=== PATIENT | female | born 1960 | race Caucasian/White ===

== ENCOUNTER 2018-10-13 08:39 | Day surgery (SDC) | payer OTHER, SELFPAY ==
[2018-10-13 09:44] VITALS: BP 126/65; PULSE 55; RESP 16; TEMP 36.6; O2SAT 97; BMI 24.5
[2018-10-13] MEDS: SODIUM CHLORIDE 0.9% 1,000 ML 200 ML IV (10:00)
--- NOTE | 2018-10-13 11:05 | PM.HP.1 ---
History of Present Illness Date Patient Seen: 10/13/18 Time Patient Seen: 11:05 Chief complaint: colonoscopy [id number] Narrative: Patient is a woman here for screening colonoscopy. Her last exam was 10 years ago. She has no history of polyps and no family history colon cancer. Patient History Medical History Arthritis (Chronic) Surgical History History of tubal ligation (Resolved) Family & Social History Social History: household members none Meds Home Medications Medication Instructions Recorded Confirmed Type acyclovir 200 mg PRN 10/13/18 History Allergies Allergy/AdvReac Type Severity Reaction Status Date / Time No Known Drug Allergies Allergy Verified 10/13/18 09:41 Review of Systems Review of Systems All systems reviewed & are unremarkable except as noted in HPI and below Exam Vital Signs (past 8 hours): - 10/13/18 09:44 Temperature 97.8 F Pulse Rate 55 L Respiratory Rate 16 Blood Pressure 126/65 Pulse Oximetry 97 Oxygen Delivery Method Room Air Narrative Exam Narrative: Thin cooperative woman in no apparent distress. Lungs are clear to auscultation no rales rhonchi. Heart regular rate and rhythm without murmur gallop. Abdomen is scaphoid soft nontender without mass. Alert and oriented x3. Assessment & Plan Plan: Assessment/Plan Narrative: For screening colonoscopy. I have discussed the procedure and the rationale with the patient including risks of bleeding, perforation which would necessitate a major operation, failure to find remove all lesions and the potential to tattoo. They appeared to understand and wished to proceed.
--- NOTE | 2018-10-13 11:07 | PM.PREOP ---
Pre-operative Note Interval Note Pre-op Check: Yes History & Physical exam performed today by Physician Changes: No ASA Class (for procedural sedation): I
--- NOTE | 2018-10-13 11:38 | PM.OP.ENDO ---
Operative Date/Time/Diagnoses Date of procedure: 10/13/18 Time of procedure: 11:38 Pre-op diagnosis: Screening examination Post-op diagnosis: same (Ruiz diverticulosis. Internal hemorrhoid this.) Procedure & Clinicians Study performed: Colonoscopy Same procedure as scheduled: Yes Indications: Screening Surgeon: Pablo Starks Procedure Notes SCOAP/Timeout: Performed Procedure in detail: The patient was placed in the left lateral decubitus position and underwent IV sedation directed by the surgeon consisting of fentanyl and Versed. Digital exam was unremarkable. The scope was inserted and advanced through the rectum into the sigmoid, descending, transverse, and ascending colon. Pressure was applied we made our way into the cecum. Diverticulosis was noted throughout the colon. The heavy is concentrations were in the sigmoid and ascending colon.. The cecum was reached identified by the ileocecal valve and the appendiceal opening. The ileocecal valve was successfully cannulated. The terminal ileum was normal in appearance. The scope was gradually brought out. No Polyps were found. The scope ultimately was retroflexed in the rectum. The appearance was remarkable for internal hemorrhoids without ulceration. There was some scarring noted. The scope was removed and the patient tolerated the procedure well. Prep was very good Scope withdrawal time: 8 min Sedation minutes: 24 Findings: diverticulosis (Ruiz colonic) and internal hemorrhoids Specimen(s): none sent Complications: none Recommendations: Colonscopy in 10 years Follow up: as needed Disposition: PACU
[2018-10-13] MEDS: fentaNYL 250 MCG/5 ML INJ IV (11:40)
[2018-10-13] MEDS: MIDAZOLAM 5 MG/5 ML VIAL IV (11:40)
[2018-10-13 11:46] VITALS: BP 87/56; PULSE 56; RESP 12; TEMP 36.6; O2SAT 97
[2018-10-13 11:56] VITALS: BP 102/64; PULSE 53; RESP 12; O2SAT 97
== END 2018-10-13 12:45 | disposition home or self-care (01) ==
PROVIDERS: PCP Family Medicine; Visit Provider Specialist
PROC: 0DJD8ZZ Inspection of Lower Intestinal Tract, Via Natural or Artificial Opening Endoscopic (ICD-10-PCS; CPT 45378; principal; 2018-10-13 10:45)
DX: Z12.11 Encounter for screening for malignant neoplasm of colon (principal); K57.30 Diverticulosis of large intestine without perforation or abscess without bleeding; K64.8 Other hemorrhoids
CPT/HCPCS: 45378; 99152; 99153; J2250; J3010

== ENCOUNTER → 2021-01-23 10:38 | Outpatient (CLI) | payer BC, SELFPAY ==
--- NOTE | 2021-01-23 | DI.RAD.S_ITS ---
PROCEDURE: XR DEXA AXIAL SKELETON INDICATIONS: PAIN IN RIGHT HIP COMPARISON: None. FINDINGS: This blank DEXA report has been sent in error by the PACS system. The correct and complete report will be forthcoming in 1-2 days. Thank you for your patience and understanding. Dictated by: Cece Strong MD, PhD on 01/23/2021 at 12:44 Approved by: Cece Strong MD, PhD on 01/23/2021 at 12:44
== END ==
PROVIDERS: PCP Family Medicine; Referring Provider Physician Assistant Medical; Visit Provider Physician Assistant Medical
DX: M85.88 Other specified disorders of bone density and structure, other site (principal); M25.551 Pain in right hip; D48.9 Neoplasm of uncertain behavior, unspecified
CPT/HCPCS: 77080

== ENCOUNTER → 2021-04-16 08:37 | Outpatient (CLI) | payer BC, SELFPAY ==
[2021-04-16 20:07] LABS: Add Manual Diff / Slide Review NO; Basophils Absolute Auto 0 /uL (0-100); Basophils Percent Auto 0.7 % (0-2); Eosinophils Absolute Auto 200 /uL (0-450); Eosinophils Percent Auto 3.8 % (2-4); Hematocrit 40.5 % (36-46); Hemoglobin 13.8 g/dL (12.0-16.0); Lymphocytes Absolute Auto 2000 /uL (1100-4500); Lymphocytes Percent Auto 32.5 % (25-40); Mean Corpuscular HGB Conc 34.1 % (30-36); Mean Corpuscular Hemoglobin 32.1 PG (26-34); Mean Corpuscular Volume 93.9 fL (80-100); Monocytes Absolute Auto 500 /uL (0-900); Monocytes Percent Auto 8.7 % (3-14); Neutrophils Absolute Auto 3300 /uL (1500-7000); Neutrophils Percent Auto 54.3 % (50-75); Platelet Count 283 X10^3/uL (150-400); Red Blood Cell Count 4.31 X10^6/uL (4.0-5.2); Red Cell Distribution Width 12.7 % (11.6-14.8)
[2021-04-16 20:17] LABS: Alanine Aminotransferase 14 IU/L (<35); Albumin Globulin Ratio 1.5 (1.0-2.8); Alkaline Phosphatase 95 U/L (38-126); Aspartate Aminotransferase 27 IU/L (14-36); BUN Creatinine Ratio 17.1 (6-22); Bilirubin Total 0.5 mg/dL (0.2-1.3); Blood Urea Nitrogen 13 mg/dL (7-17); Calcium 9.6 mg/dL (8.4-10.2); Carbon Dioxide 29 mmol/L (22-32); Chloride 100 mmol/L (98-107); Estimated Glomerular Filt Rate > 60.0 mL/min (>60); Globulin 2.6 g/dL (1.7-4.1); Glucose 84 mg/dL (80-110); HEMOLYSIS < 15 (0-50); Potassium 4.4 mmol/L (3.4-5.1); Sodium 136 mmol/L (137-145); Total Protein 6.6 g/dL (6.3-8.2)
[2021-04-16 21:10] LABS: Hep C Virus Ab w/Reflex Quant REACTIVE s/c (NEGATIVE)
== END ==
PROVIDERS: PCP Family Medicine; Visit Provider Physician Assistant
DX: B18.2 Chronic viral hepatitis C (principal)
CPT/HCPCS: 80053; 85025; 86803; 87522

== ENCOUNTER → 2021-07-01 09:03 | Outpatient (CLI) | payer BC, SELFPAY ==
[2021-07-01 19:59] LABS: Hematocrit 43.1 % (36-46); Hemoglobin 14.1 g/dL (12.0-16.0); Mean Corpuscular HGB Conc 32.8 % (30-36); Mean Corpuscular Hemoglobin 31.2 PG (26-34); Mean Corpuscular Volume 95.3 fL (80-100); Platelet Count 272 X10^3/uL (150-400); Red Blood Cell Count 4.52 X10^6/uL (4.0-5.2); Red Cell Distribution Width 12.5 % (11.6-14.8); White Blood Cell Count 5.6 X10^3/uL (4.5-11.0)
[2021-07-01 20:12] LABS: Alanine Aminotransferase 15 IU/L (<35); Albumin 4.1 g/dL (3.5-5.0); Albumin Globulin Ratio 1.7 (1.0-2.8); Alkaline Phosphatase 88 U/L (38-126); Aspartate Aminotransferase 28 IU/L (14-36); BUN Creatinine Ratio 15.4 (6-22); Bilirubin Total 0.6 mg/dL (0.2-1.3); Blood Urea Nitrogen 12 mg/dL (7-17); Calcium 9.5 mg/dL (8.4-10.2); Carbon Dioxide 31 mmol/L (22-32); Chloride 101 mmol/L (98-107); Estimated Glomerular Filt Rate > 60.0 mL/min (>60); Globulin 2.4 g/dL (1.7-4.1); Glucose 80 mg/dL (80-110); HEMOLYSIS < 15 (0-50); Potassium 4.3 mmol/L (3.4-5.1); Sodium 137 mmol/L (137-145); Total Protein 6.5 g/dL (6.3-8.2)
== END ==
PROVIDERS: PCP Physician Assistant Medical; Visit Provider Physician Assistant
DX: B18.2 Chronic viral hepatitis C (principal)
CPT/HCPCS: 80053; 85027; 87522

== ENCOUNTER → 2021-08-28 13:36 | Outpatient (CLI) | payer BC, SELFPAY | PROVIDERS: PCP Physician Assistant Medical; Visit Provider Physician Assistant Medical | DX: N32.81 Overactive bladder (principal) | CPT/HCPCS: 87086 ==

== ENCOUNTER → 2021-09-02 11:12 | Outpatient (CLI) | payer BC, SELFPAY | PROVIDERS: PCP Physician Assistant Medical; Visit Provider Physician Assistant Medical | DX: Z91.89 Other specified personal risk factors, not elsewhere classified (principal) | CPT/HCPCS: 87086 ==

== ENCOUNTER 2022-02-08 14:34 | Emergency (ER) | payer BC, SELFPAY ==
[2022-02-08] VITALS (14 sets, daily range): BP systolic 101–162; BP diastolic 57–67; PULSE 56–66; RESP 15–37; TEMP 37; O2SAT 97–99; BMI 26.5
--- NOTE | 2022-02-08 14:48 | DI.RAD.S_ITS ---
PROCEDURE: XR CHEST 1V INDICATIONS: chest pain TECHNIQUE: One view of the chest was acquired. COMPARISON: [facility] ([facility]), CR, XR CHEST 2V, 08/28/2021, 12:35. FINDINGS: Surgical changes and devices: None. Lungs and pleura: Lungs are clear. No pleural effusions or pneumothorax. Mediastinum: Mediastinal contours appear normal. Heart size is normal. Bones and chest wall: No suspicious bony lesions. Overlying soft tissues appear unremarkable. IMPRESSION: No acute cardiopulmonary pathology. Dictated by: Atif Guido M.D. on 02/08/2022 at 15:18 Approved by: Atif Guido M.D. on 02/08/2022 at 15:18
[2022-02-08] MEDS: ASPIRIN 81 MG CHEW TAB 324 MG PO (14:55)
[2022-02-08 15:10] LABS: Add Manual Diff / Slide Review NO; Basophils Absolute Auto 0 /uL (0-100); Basophils Percent Auto 0.7 % (0-2); Eosinophils Absolute Auto 0 /uL (0-450); Eosinophils Percent Auto 0.3 % (2-4); Hematocrit 41.4 % (36-46); Hemoglobin 14.4 g/dL (12.0-16.0); Lymphocytes Absolute Auto 1100 /uL (1100-4500); Lymphocytes Percent Auto 19.9 % (25-40); Mean Corpuscular HGB Conc 34.8 % (30-36); Mean Corpuscular Hemoglobin 32.8 PG (26-34); Mean Corpuscular Volume 94.4 fL (80-100); Monocytes Absolute Auto 400 /uL (0-900); Monocytes Percent Auto 6.9 % (3-14); Neutrophils Absolute Auto 4100 /uL (1500-7000); Neutrophils Percent Auto 72.2 % (50-75); Platelet Count 216 X10^3/uL (150-400); Red Blood Cell Count 4.39 X10^6/uL (4.0-5.2); Red Cell Distribution Width 12.8 % (11.6-14.8); White Blood Cell Count 5.7 X10^3/uL (4.5-11.0)
[2022-02-08 15:11] LABS: Alanine Aminotransferase 15 IU/L (<35); Albumin 4.4 g/dL (3.5-5.0); Albumin Globulin Ratio 1.6 (1.0-2.8); Alkaline Phosphatase 50 U/L (38-126); Aspartate Aminotransferase 27 IU/L (14-36); BUN Creatinine Ratio 24.3 (6-22); Bilirubin Total 0.7 mg/dL (0.2-1.3); Blood Urea Nitrogen 17 mg/dL (7-17); Calcium 8.7 mg/dL (8.4-10.2); Carbon Dioxide 30 mmol/L (22-32); Chloride 100 mmol/L (98-107); Creatine Kinase 53 U/L (30-135); Estimated Glomerular Filt Rate > 60.0 mL/min (>60); Globulin 2.7 g/dL (1.7-4.1); Glucose 111 mg/dL (80-110); HEMOLYSIS < 15 (0-50); Lipase 39 U/L (23-300); Magnesium 2.3 mg/dL (1.6-2.3); Potassium 3.6 mmol/L (3.4-5.1); Sodium 136 mmol/L (137-145); Total Protein 7.1 g/dL (6.3-8.2)
[2022-02-08 15:21] LABS: Troponin I < 0.012 ng/mL (0.01-0.034)
--- NOTE | 2022-02-08 15:49 | ED.CHESTPAIN ---
HPI - Chest Pain General Chief Complaint: Chest Pain Stated Complaint: Chest pain- sent by [email or web address] Time Seen by Provider: 02/08/22 15:45 Source: patient Mode of arrival: Ambulatory Limitations: no limitations Limitations: no limitations History of Present Illness HPI narrative: This is a 61-year-old female comes emergency department with complaint of chest pain sent from [facility]. Patient states last night she had vomiting for about 4:00 p.m. to 8:00 p.m. yesterday that was persistent as well as diarrhea. This had since resolved. She went to sleep but when she woke up this morning she felt like she pulled a muscle in her chest and shoulder and back. She states pain was quite intense but was also sort of localized to the left side of her chest but she had some centrally as well. She took an Advil which seemed to almost completely resolve her symptoms but not totally. She has continued to have some symptoms movement and walking seem to make it better. She did have a temperature of a 100? F at home this morning. She denies any shortness of breath. She denies any diaphoresis. She has not had any additional nausea vomiting since last night. She has not had any additional diarrhea. She never had any bright red blood or melanotic stools. She denies any dysuria urgency or frequency. Patient does have a history of bicuspid aortic valve, she is murmur and follows with Cardiology but has not required any intervention she takes acyclovir, vitamin-D and Ambien as needed her only surgeries are tubal ligation and tonsillectomy. No tobacco, alcohol or illicit. Family history no pulmonary emboli or pulmonary issues but she has a brother who had cardiac stents placed in his mid 40s to early 50s and started on blood pressure medications in his 20s to 30s and 3 of her 4 brothers are on antihypertensives. Patient herself does not take any hypertensive medication. Related Data Home Medications Medication Instructions Recorded Confirmed acyclovir 200 mg PRN 10/13/18 Previous Rx's Medication Instructions Recorded acyclovir 400 mg tablet 400 mg PO BID #180 tab 08/28/21 acyclovir 5 % topical cream 1 applic TOPICAL 5XD 4 Days #5 g 08/28/21 hyoscyamine sulfate 0.125 mg 0.125 mg PO Q4H PRN #20 tab 08/28/21 disintegrating tablet trazodone 50 mg tablet 50 mg PO BEDTIME PRN #60 tab 08/28/21 tolterodine 2 mg capsule,extended See Rx Instructions .ROUTE 11/24/21 release 24 hr .COMPLEX #90 cap oxybutynin chloride 5 mg tablet See Rx Instructions .ROUTE 01/13/22 .COMPLEX #30 tab zolpidem 5 mg tablet 5 mg PO BEDTIME PRN #30 tab MDD 5 01/26/22 mg Allergies Allergy/AdvReac Type Severity Reaction Status Date / Time No Known Drug Allergies Allergy Verified 02/08/22 14:40 Review of Systems Review of Systems ROS Unobtainable: All systems reviewed & are unremarkable except as noted in HPI and below Patient History Medical History Arthritis Encounter for screening for depression Other specified acute skin changes due to ultraviolet radiation Other symptoms and signs involving cognitive functions and awareness Surgical History History of tubal ligation Social History household members: none Smoking Status: Never smoker Smoking Status: Never smoker alcohol intake frequency: 0-2 drinks per day Substance Use Type: does not use Exam Narrative Exam Narrative: GENERAL: Alert and oriented x three, female in mild distress. HEENT: Head normocephalic, atraumatic, EOMI, pupils reactive, face symmetric, moist mucous membranes NECK: Supple, full range of motion CARDIOVASCULAR: Regular rate and rhythm without murmurs, rubs or gallops. No JVD. No swelling bilateral lower extremities. RESPIRATORY: Breath sounds equal bilaterally, no wheezes rales or rhonchi. ABDOMEN: Soft, nontender. Normoactive bowel sounds all 4 quadrants. No guarding or rebound, rigidity, no mass : No CVA tenderness EXTREMITIES: Normal range of motion, no clubbing or edema. Neurovascularly intact NEUROLOGICAL: Cranial nerves II through XII grossly intact. Moving all extremities SKIN: Warm, dry, no petechiae, no rashes or lesions. Initial Vital Signs Initial Vital Signs: Vital Signs Temperature 98.6 F 02/08/22 14:36 Pulse Rate 66 02/08/22 14:36 Respiratory Rate 16 02/08/22 14:36 Blood Pressure 162/66 H 02/08/22 14:36 Pulse Oximetry 97 02/08/22 14:36 Scores HEART Score Heart Score history: Slightly Suspicious Heart Score EKG: Non-Specific repolarization disturbance Heart Score Age: 45-64 years old Heart Score risk factors: 1-2 risk factors Heart Score troponin: < or = to normal limit Heart Score Total: 3 Course Orders Ordered: ED Orders 02/08/22 14:48 XR chest 1V Stat EKG-12 Lead Stat 02/08/22 14:50 Complete Blood Count AUTO DIFF Stat Comprehensive Metabolic Panel Stat Lipase Stat Magnesium Stat Troponin & CK Cardiac Panel Stat 02/08/22 16:56 Troponin I Stat Discontinued Medications Aspirin (Aspirin 81 Mg Chew Tab) 324 mg PO NOW ONE Stop: 02/08/22 14:49 Last Admin: 02/08/22 14:55 Dose: 324 mg Documented by: JOSE A Vital Signs Vital signs: Vital Signs - 8 hr 02/08/22 14:36 02/08/22 15:08 02/08/22 15:12 Temperature 98.6 F Pulse Rate 66 59 L 60 Respiratory Rate 16 17 Blood Pressure 162/66 H 126/64 Pulse Oximetry 97 98 99 02/08/22 15:15 02/08/22 15:30 02/08/22 15:45 Temperature Pulse Rate 62 58 L 59 L Respiratory Rate 15 28 H 24 Blood Pressure 109/65 104/64 101/65 Pulse Oximetry 98 98 97 02/08/22 16:00 02/08/22 16:20 02/08/22 16:30 Temperature Pulse Rate 56 L 57 L 59 L Respiratory Rate 30 H 19 25 H Blood Pressure 104/67 107/57 L 113/64 Pulse Oximetry 98 98 98 02/08/22 16:45 02/08/22 17:00 02/08/22 17:15 Temperature Pulse Rate 60 63 57 L Respiratory Rate 28 H 37 H 20 Blood Pressure 114/64 113/65 117/65 Pulse Oximetry 97 97 98 02/08/22 17:30 02/08/22 17:41 Temperature Pulse Rate 60 59 L Respiratory Rate 30 H 33 H Blood Pressure 114/62 110/61 Pulse Oximetry 98 98 MDM - Chest Pain Lab Data Result diagrams: 02/08/22 14:50 02/08/22 14:50 Labs: Lab Results 04/04/22 04/04/22 04/04/22 Range/Units 14:50 14:50 16:56 WBC 5.7 (4.5-11.0) X10^3/uL RBC 4.39 (4.0-5.2) X10^6/uL Hgb 14.4 (12.0-16.0) g/dL Hct 41.4 (36-46) % MCV 94.4 (80-100) fL MCH 32.8 (26-34) PG MCHC 34.8 (30-36) % RDW 12.8 (11.6-14.8) % Plt Count 216 (150-400) X10^3/uL Neut % (Auto) 72.2 (50-75) % Lymph % (Auto) 19.9 L (25-40) % [place] % (Auto) 6.9 (3-14) % Eos % (Auto) 0.3 L (2-4) % Baso % (Auto) 0.7 (0-2) % Neut # (Auto) 4100 (1732-7255) /uL Lymph # (Auto) 1100 (4831-8918) /uL [place] # (Auto) 400 (0-900) /uL Eos # (Auto) 0 (0-450) /uL Baso # (Auto) 0 (0-100) /uL Sodium 136 L (137-145) mmol/L Potassium 3.6 (3.4-5.1) mmol/L Chloride 100 (98-107) mmol/L Carbon Dioxide 30 (22-32) mmol/L BUN 17 (7-17) mg/dL Creatinine 0.70 (0.52-1.04) mg/dL Estimated GFR > 60.0 (>60) mL/min BUN/Creatinine Ratio 24.3 H (6-22) Glucose 111 H (80-110) mg/dL Calcium 8.7 (8.4-10.2) mg/dL Magnesium 2.3 (1.6-2.3) mg/dL Total Bilirubin 0.7 (0.2-1.3) mg/dL AST 27 (14-36) IU/L ALT 15 (<35) IU/L Alkaline Phosphatase 50 (38-126) U/L Total Creatine Kinase 53 (30-135) U/L CK-MB (CK-2) TNP CK-MB (CK-2) Rel Index TNP Troponin I < 0.012 < 0.012 (0.01-0.034) ng/mL Total Protein 7.1 (6.3-8.2) g/dL Albumin 4.4 (3.5-5.0) g/dL Globulin 2.7 (1.7-4.1) g/dL Albumin/Globulin Ratio 1.6 (1.0-2.8) Lipase 39 (23-300) U/L Imaging Data Chest x-ray: Radiologist's Impression: [address] [address] XRay Report Signed Patient: Erin Sanchez MR#: [id number] : 1960 Acct:[id number] Age/Sex: 61 / F Date of Service: 02/08/22 Loc: ED Accession Number: [id number] ?? Procedure: XR chest 1V Ordering Provider: Jeniffer Kidd D.O. PROCEDURE:? XR CHEST 1V ? INDICATIONS:? chest pain ? TECHNIQUE:? One view of the chest was acquired.? ? COMPARISON:? [facility] [place], , [place]R CHEST 2V, 08/28/2021, 12:35. ? FINDINGS:? ? Surgical changes and devices:? None.? ? Lungs and pleura:? Lungs are clear.? No pleural effusions or pneumothorax.? ? Mediastinum:? Mediastinal contours appear normal.? Heart size is normal.? ? Bones and chest wall:? No suspicious bony lesions.? Overlying soft tissues appear unremarkable.? ? IMPRESSION:? No acute cardiopulmonary pathology. ? ? Dictated by: Atif Guido M.D. on 02/08/2022 at 15:18 ? ? Approved by: Atif Guido M.D. on 02/08/2022 at 15:18?? ECG Data Attestation: I personally reviewed and interpreted this ECG as follows: Prior ECG tracings: not available for review Interpretation: Sinus bradycardia, incomplete right bundle, nonspecific T-wave change. Rate of 59, NV 160 QRS of 92 QTC of 425. Patient does not have priors for comparison. EMS noted on their EKG to have inverted T-wave in lead 3 but did not send a copy of EKG. EKG 2. Shows sinus rhythm rate of 60 NV 154 QRS 88 QTC of 430. Patient continued to have T-wave inversion in lead 3. No other acute changes her appreciated appears similar to earlier EKG from today. MDM Narrative Medical decision making narrative: This is a 61-year-old female comes in with complaint of nausea and vomiting last night which has since resolved. Patient woke up this morning and felt discomfort in her chest and shoulders and back which had some improvement with Advil but not complete resolution. [place] and recommended to come for eval. She has high-risk family history but herself has bicuspid aortic valve but no other additional medical risk factors besides family history. EKG shows inverted T-wave in 3 but no continuous lead changes. Troponin is negative x2, chest x-ray and lab work do not show or illicit any other cause and I suspect some of this may be musculoskeletal from her frequent emesis yesterday. Patient and I did discuss her risk factors and if she has persistent or new symptoms should be re-evaluated. Discharge Plan Departure Patient Disposition: Home Clinical Impression: Atypical chest pain Instructions: DI for Atypical Chest Pain Activity Restrictions/Additional Instructions: I suspect your symptoms are related to recent episode of nausea and vomiting yesterday but if you have persistent symptoms please follow-up with your primary care physician for repeat evaluation and possible stress testing. You may take Tylenol or Advil for pain. Please return for new or worsening chest pain, shortness of breath, persistent vomiting, swelling in your extremities, passing out, black or bloody stools or other new or concerning symptoms. Prescriptions: No Action tolterodine 2 mg capsule,extended release 24hr See Rx Instructions .ROUTE .COMPLEX Qty: 90 3RF Dose Instruction: TAKE ONE CAPSULE BY MOUTH EVERY DAY Rx Instructions: TAKE ONE CAPSULE BY MOUTH EVERY DAY oxybutynin chloride 5 mg tablet See Rx Instructions .ROUTE .COMPLEX Qty: 30 0RF Dose Instruction: TAKE ONE TABLET BY MOUTH EVERY DAY AT BEDTIME Rx Instructions: TAKE ONE TABLET BY MOUTH EVERY DAY AT BEDTIME zolpidem 5 mg tablet 5 mg PO BEDTIME MDD 5 mg PRN (Reason: sleep) Qty: 30 0RF Hold Instructions: trial of trazadone acyclovir 200 mg 200 mg PRN (Reason: Herpes) 0RF acyclovir 400 mg tablet 400 mg PO BID Qty: 180 3RF acyclovir 5 % cream 1 applic topical 5XD 4 Days Qty: 5 3RF trazodone 50 mg tablet 50 mg PO BEDTIME PRN (Reason: insomnia) Qty: 60 2RF hyoscyamine sulfate 0.125 mg tablet,disintegrating 0.125 mg PO Q4H PRN (Reason: intestinal spasm) Qty: 20 1RF Referrals: Carla Rodriguez PA-C [Primary Care Provider] -
[2022-02-08 17:31] LABS: Troponin I < 0.012 ng/mL (0.01-0.034)
== END 2022-02-08 17:51 | disposition home or self-care (01) ==
PROVIDERS: Emergency Provider Emergency Medicine; PCP Physician Assistant Medical
DX: R07.9 Chest pain, unspecified (principal)
CPT/HCPCS: 36415; 71045; 80053; 82550; 83690; 83735; 84484; 85025; 93005; 93010; 99284

== ENCOUNTER → 2022-05-04 08:08 | Outpatient (CLI) | payer BC, SELFPAY ==
[2022-05-04 18:18] LABS: Add Manual Diff / Slide Review NO; Basophils Absolute Auto 100 /uL (0-100); Basophils Percent Auto 1.1 % (0-2); Eosinophils Absolute Auto 200 /uL (0-450); Eosinophils Percent Auto 3.5 % (2-4); Hematocrit 40.5 % (36-46); Lymphocytes Absolute Auto 1800 /uL (1100-4500); Lymphocytes Percent Auto 34.3 % (25-40); Mean Corpuscular HGB Conc 34.6 % (30-36); Mean Corpuscular Hemoglobin 32.7 PG (26-34); Mean Corpuscular Volume 94.6 fL (80-100); Monocytes Absolute Auto 500 /uL (0-900); Monocytes Percent Auto 8.7 % (3-14); Neutrophils Absolute Auto 2800 /uL (1500-7000); Neutrophils Percent Auto 52.4 % (50-75); Platelet Count 274 X10^3/uL (150-400); Red Blood Cell Count 4.28 X10^6/uL (4.0-5.2); Red Cell Distribution Width 12.1 % (11.6-14.8); White Blood Cell Count 5.4 X10^3/uL (4.5-11.0)
[2022-05-04 18:19] LABS: Alanine Aminotransferase 14 IU/L (<35); Albumin 4.2 g/dL (3.5-5.0); Albumin Globulin Ratio 1.5 (1.0-2.8); Alkaline Phosphatase 82 U/L (38-126); Aspartate Aminotransferase 57 IU/L (14-36); BUN Creatinine Ratio 16.7 (6-22); Bilirubin Total 0.6 mg/dL (0.2-1.3); Blood Urea Nitrogen 13 mg/dL (7-17); Calcium 9.1 mg/dL (8.4-10.2); Carbon Dioxide 31 mmol/L (22-32); Chloride 102 mmol/L (98-107); Estimated Glomerular Filt Rate > 60 mL/min (>60); Globulin 2.8 g/dL (1.7-4.1); Glucose 80 mg/dL (80-110); HEMOLYSIS 22 (0-50); Potassium 4.2 mmol/L (3.4-5.1); Sodium 139 mmol/L (137-145)
[2022-05-04 18:20] LABS: Appearance Urine UA CLEAR; Bilirubin Urine UA NEGATIVE (NEGATIVE); Color Urine UA YELLOW; Glucose Urine UA NEGATIVE (Negative); Ketones Urine UA NEGATIVE (NEGATIVE); Leukocyte Esterase Urine UA NEGATIVE (NEGATIVE); Nitrite Urine UA NEGATIVE (Negative); Occult Blood Urine UA NEGATIVE (Negative); Protein Urine UA NEGATIVE (Negative); Urobilinogen Urine UA 0.2 E.U./dL (0.2)
[2022-05-04 18:27] LABS: Bacteria Urine None Seen; Culture Indicated Urine Cult Not Indicated; RBC Urine None Seen (0-5/HPF); Urine Comments Microscopic Normal; WBC Urine None Seen (0-5/HPF)
[2022-05-04 18:51] LABS: TSH w/ Reflex to FT4 1.64 uIU/mL (0.47-4.68)
== END ==
PROVIDERS: PCP Physician Assistant Medical; Visit Provider Physician Assistant Medical
DX: Z01.818 Encounter for other preprocedural examination (principal); M16.11 Unilateral primary osteoarthritis, right hip; M25.551 Pain in right hip; R01.1 Cardiac murmur, unspecified
CPT/HCPCS: 80053; 81001; 84443; 85025

== ENCOUNTER → 2023-07-21 09:57 | Outpatient (CLI) | payer OTHER, SELFPAY ==
[2023-07-21 19:15] LABS: Add Manual Diff / Slide Review NO; Basophils Absolute Auto 100 /uL (0-100); Basophils Percent Auto 0.8 % (0-2); Eosinophils Absolute Auto 200 /uL (0-450); Eosinophils Percent Auto 2.7 % (2-4); Hematocrit 42.6 % (36-46); Hemoglobin 14.6 g/dL (12.0-16.0); Lymphocytes Absolute Auto 2300 /uL (1100-4500); Lymphocytes Percent Auto 35.1 % (25-40); Mean Corpuscular HGB Conc 34.2 % (30-36); Mean Corpuscular Hemoglobin 32.1 PG (26-34); Mean Corpuscular Volume 94.1 fL (80-100); Monocytes Absolute Auto 500 /uL (0-900); Monocytes Percent Auto 6.9 % (3-14); Neutrophils Absolute Auto 3600 /uL (1500-7000); Neutrophils Percent Auto 54.5 % (50-75); Platelet Count 303 X10^3/uL (150-400); Red Blood Cell Count 4.53 X10^6/uL (4.0-5.2); Red Cell Distribution Width 12.6 % (11.6-14.8); White Blood Cell Count 6.6 X10^3/uL (4.5-11.0)
[2023-07-21 19:44] LABS: Alanine Aminotransferase 20 IU/L (<35); Albumin 4.4 g/dL (3.5-5.0); Albumin Globulin Ratio 1.8 (1.0-2.8); Alkaline Phosphatase 98 U/L (38-126); Aspartate Aminotransferase 28 IU/L (14-36); BUN Creatinine Ratio 17.1 (6-22); Bilirubin Total 0.5 mg/dL (0.2-1.3); Blood Urea Nitrogen 13 mg/dL (7-17); Calcium 9.2 mg/dL (8.4-10.2); Carbon Dioxide 30 mmol/L (22-32); Chloride 99 mmol/L (98-107); Cholesterol 226 mg/dL (140-199); Estimated Glomerular Filt Rate > 60 mL/min (>60); Globulin 2.5 g/dL (1.7-4.1); Glucose 89 mg/dL (80-110); HDL Cholesterol 57 mg/dL (40-60); HEMOLYSIS < 15 (0-50); LDL Cholesterol Calculated 155 mg/dL (<100); Potassium 4.5 mmol/L (3.4-5.1); Sodium 136 mmol/L (137-145); Total Protein 6.9 g/dL (6.3-8.2); Triglycerides 69 mg/dL (35-150)
[2023-07-21 20:18] LABS: Hep C Virus Ab w/Reflex Quant REACTIVE s/c (NEGATIVE)
== END ==
PROVIDERS: PCP Physician Assistant Medical; Visit Provider Physician Assistant
DX: R79.89 Other specified abnormal findings of blood chemistry (principal); Z13.6 Encounter for screening for cardiovascular disorders; Z86.19 Personal history of other infectious and parasitic diseases
CPT/HCPCS: 80053; 80061; 85025; 86803; 87522

== ENCOUNTER → 2023-07-27 16:15 | Outpatient (CLI) | payer OTHER, SELFPAY ==
--- NOTE | 2023-07-27 16:16 | DI.US.S_ITS ---
PROCEDURE: US PELVIC COMPLETE INDICATIONS: ENLARGED UTERUS TECHNIQUE: Real-time scanning was performed of the pelvic organs, with image documentation. Additional endovaginal scanning was necessary due to incomplete visualization of the adnexal and endometrial structures by transabdominal scanning. COMPARISON: None. FINDINGS: Uterus: Uterus is anteverted and normal in size at 2.1 x 4.3 x 3.1 cm. The myometrium is homogeneous. The endometrium measures 3 mm combined thickness. Trace fluid is present within the endocervical canal. Ovaries: The right ovary measures 0.9 x 0.5 x 0.8 cm, with a calculated ovarian volume of 0.2 cc. The left ovary measures 1.7 x 0.9 x 1.3 cm, with a calculated ovarian volume of 1.1 cc. The ovaries have a normal sonographic appearance. Less than 12 follicles can be seen in each ovary. No adnexal masses are seen. There is a simple 5 mm right ovarian cyst. Other: No pathologic free abdominal or pelvic fluid. IMPRESSION: Unremarkable pelvic ultrasound. We strive to produce accurate, complete, and clear reports of imaging services. To assist us in improving patient care, this report was composed using standard report templates and voice recognition software. Therefore, it may contain abnormal punctuation, insertions and/or omissions. Occasional wrong-word or sound-alike substitutions may occur. Though we review the report and make efforts to correct it, we do recommend that the report be read carefully in proper context to recognize any text inaccuracies. Dictated by: Becki Rodriguez M.D. on 07/28/2023 at 11:40 Approved by: Becki Rodriguez M.D. on 07/28/2023 at 11:42
== END ==
PROVIDERS: PCP Physician Assistant Medical; Referring Provider Nurse Practitioner Adult Health; Visit Provider Nurse Practitioner Adult Health
DX: N32.81 Overactive bladder (principal); R10.2 Pelvic and perineal pain
CPT/HCPCS: 76830; 76856; 93975

== ENCOUNTER → 2024-03-29 12:14 | Outpatient (CLI) | payer OTHER, SELFPAY | PROVIDERS: PCP Physician Assistant Medical; Visit Provider Physician Assistant Medical | DX: R30.0 Dysuria (principal) | CPT/HCPCS: 87086 ==

== ENCOUNTER → 2024-04-06 10:41 | Outpatient (CLI) | payer OTHER, SELFPAY ==
--- NOTE | 2024-04-06 10:42 | DI.MRI.S_ITS ---
PROCEDURE: MR LUMBAR SPINE WO CON INDICATIONS: possible interventional injections TECHNIQUE: Noncontrast sagittal T1 spin echo and T2 fast echo, sagittal STIR, and T2 fast spin echo through the lumbar spine. In cases with scoliosis, additional coronal T2 fast spin echo may be performed. COMPARISON: None. FINDINGS: Image quality: Excellent. Alignment and Curvature: There is normal bony alignment. Bone Marrow: Degenerative edematous endplate changes Modic type 1 noted at T12-L1 Spinal Cord: Conus medullaris terminates at the L1 level. Visualized cord demonstrates normal signal and size. Paraspinous Soft Tissues: No paravertebral masses. T12-L1: Disc bulge. No central stenosis. Mild foraminal stenosis. L1-L2: Disc bulge. No central stenosis. Moderate bilateral foraminal stenosis L2-L3: Disc bulge and arthropathy. Mild central stenosis. Moderate left and mild right foraminal stenosis L3-L4: Disc bulge and arthropathy. Mild central stenosis. No foraminal stenosis L4-L5: Disc bulge and arthropathy. No central stenosis. Severe left and no right foraminal stenosis L5-S1: Disc bulge and arthropathy. Moderate bilateral foraminal stenosis. No central stenosis IMPRESSION: Degenerative disc disease and arthropathy results in varying degrees of predominantly foraminal stenosis including severe left foraminal stenosis at L4-5 and moderate bilateral foraminal stenosis L5-S1 Approved by: Yevgeniy Ruvalcaba M.D. on 04/06/2024 at 15:19
== END ==
PROVIDERS: PCP Physician Assistant Medical; Referring Provider Physician Assistant Medical; Visit Provider Physician Assistant Medical
DX: M47.26 Other spondylosis with radiculopathy, lumbar region; M51.16 Intervertebral disc disorders with radiculopathy, lumbar region; M47.27 Other spondylosis with radiculopathy, lumbosacral region; M51.17 Intervertebral disc disorders with radiculopathy, lumbosacral region; M48.061 Spinal stenosis, lumbar region without neurogenic claudication; M48.07 Spinal stenosis, lumbosacral region; M41.9 Scoliosis, unspecified; G89.29 Other chronic pain
CPT/HCPCS: 72148

== ENCOUNTER → 2024-05-29 09:17 | Outpatient (CLI) | payer OTHER, SELFPAY | PROVIDERS: PCP Physician Assistant Medical; Visit Provider Physician Assistant Medical | DX: R31.9 Hematuria, unspecified (principal) | CPT/HCPCS: 87086 ==

== ENCOUNTER → 2024-06-01 11:29 | Outpatient (CLI) | payer OTHER, SELFPAY | PROVIDERS: PCP Physician Assistant Medical; Referring Provider Family Medicine; Visit Provider Family Medicine | DX: R10.9 Unspecified abdominal pain (principal); R31.9 Hematuria, unspecified | CPT/HCPCS: 87086 ==

== ENCOUNTER → 2024-06-07 06:00 | Outpatient (CLI) | payer OTHER, SELFPAY ==
[2024-06-12 08:36] LABS: Fecal Immunochemical Test Positive (Negative)
== END ==
PROVIDERS: PCP Physician Assistant Medical; Visit Provider Family Medicine
DX: R10.9 Unspecified abdominal pain (principal); R31.9 Hematuria, unspecified
CPT/HCPCS: 82274

== ENCOUNTER 2024-07-05 15:38 | Emergency (ER) | payer OTHER, SELFPAY ==
[2024-07-05 15:45] VITALS: BP 174/87; PULSE 65; RESP 19; TEMP 36.6; O2SAT 96; BMI 26.0
--- NOTE | 2024-07-05 16:37 | EKG_ITS ---
[address] [address] Test Date: 2024-07-05 Pat Name: Erin Sanchez Department: [facility] Room: Gender: Female [employer] Supervisor: GILBERT : 1960 Requested By: Order Number: [id number] Reading MD: Rafi Shore Measurements Intervals [place] Rate: 53 P: 74 [place]: 158 QRS: 24 QRSD: 86 T: 20 QT: 430 QTc: 403 Interpretive Statements Sinus bradycardia Electronically Signed On 07-06-2024 20:14:08 PDT by Rafi Shore
[2024-07-05 16:40] LABS: Add Manual Diff / Slide Review NO; Basophils Absolute Auto 0 /uL (0-100); Basophils Percent Auto 0.4 % (0-2); Eosinophils Absolute Auto 100 /uL (0-450); Eosinophils Percent Auto 0.6 % (2-4); Hematocrit 40.4 % (36-46); Hemoglobin 13.8 g/dL (12.0-16.0); Lymphocytes Absolute Auto 2300 /uL (1100-4500); Lymphocytes Percent Auto 26.4 % (25-40); Mean Corpuscular HGB Conc 34.3 % (30-36); Mean Corpuscular Hemoglobin 32.7 PG (26-34); Mean Corpuscular Volume 95.4 fL (80-100); Monocytes Absolute Auto 800 /uL (0-900); Monocytes Percent Auto 9.3 % (3-14); Neutrophils Absolute Auto 5600 /uL (1500-7000); Neutrophils Percent Auto 63.3 % (50-75); Platelet Count 258 X10^3/uL (150-400); Red Blood Cell Count 4.23 X10^6/uL (4.0-5.2); Red Cell Distribution Width 12.7 % (11.6-14.8); White Blood Cell Count 8.8 X10^3/uL (4.5-11.0)
[2024-07-05 16:41] LABS: Alanine Aminotransferase 16 IU/L (<35); Albumin 4.3 g/dL (3.5-5.0); Albumin Globulin Ratio 1.5 (1.0-2.8); Alkaline Phosphatase 86 U/L (38-126); Aspartate Aminotransferase 22 IU/L (14-36); BUN Creatinine Ratio 21.4 (6-22); Bilirubin Total 0.5 mg/dL (0.2-1.3); Blood Urea Nitrogen 15 mg/dL (7-17); Calcium 9.2 mg/dL (8.4-10.2); Carbon Dioxide 28 mmol/L (22-32); Chloride 99 mmol/L (98-107); Estimated Glomerular Filt Rate > 60 mL/min (>60); Globulin 2.8 g/dL (1.7-4.1); Glucose 95 mg/dL (80-110); HEMOLYSIS < 15 (0-50); Lipase 99 U/L (23-300); Potassium 4.1 mmol/L (3.4-5.1); Sodium 133 mmol/L (137-145); Total Protein 7.1 g/dL (6.3-8.2)
[2024-07-05 17:19] VITALS: BP 106/65; PULSE 52; RESP 12; O2SAT 96
[2024-07-05 18:04] VITALS: PULSE 57; O2SAT 96
[2024-07-05 18:05] VITALS: BP 129/63; PULSE 55; RESP 16; O2SAT 97
--- NOTE | 2024-07-05 18:21 | ED_ITS ---
HPI - General Adult General Chief complaint: Abdominal Pain Stated complaint: rt kidney area pain Time Seen by Provider: 07/05/24 17:56 Source: patient Mode of arrival: Ambulatory Limitations: no limitations History of Present Illness HPI narrative: 64-year-old female. Approximately 1 month ago stated that she potentially had some blood in her urine. States that subsequent urinalysis did not show any blood. She then thought that maybe she was having blood in her stool. This was confirmed by testing by her primary doctor. She just recently did the Cologuard but does not have the results of this. Has had a colonoscopy approximately 6 years ago. She thought that maybe there were polyps that were removed but nothing that was cancerous. She comes in the emergency department today for discomfort in her right lower quadrant and on her right middle back. Symptoms have been present for the past several days and worsening over the past day or so. No fevers. No vomiting. No urinary symptoms. No change in bowel habits. Related Data Home Medications Medication Instructions Recorded Confirmed methocarbamol 750 mg tablet 750 mg PO BID 06/01/24 06/01/24 Previous Rx's Medication Instructions Recorded hyoscyamine sulfate 0.125 mg 0.125 mg PO QID PRN dyspepsia #20 05/09/23 disintegrating tablet tabs acyclovir 400 mg tablet See Rx Instructions .Route 08/22/23 .COMPLEX #180 tabs estradiol 0.01% (0.1 mg/gram) See Rx Instructions vaginal 3XW 09/13/23 vaginal cream (Estrace) #42.5 grams baclofen 10 mg tablet 10 mg PO QID #90 tabs 02/08/24 zolpidem 5 mg tablet See Rx Instructions PO BEDTIME PRN 02/08/24 insomnia #14 tabs mirabegron 25 mg tablet,extended 25 mg PO DAILY #30 tabs 04/25/24 release 24 hr Allergies Allergy/AdvReac Type Severity Reaction Status Date / Time No Known Drug Allergies Allergy Verified 02/22/24 08:28 Review of Systems Review of Systems Narrative: See HPI Patient History Medical History Atrophic vulvovaginitis Sleep disorder Cervical cancer screening Well woman exam with routine gynecological exam Pelvic pressure in female Other specified acute skin changes due to ultraviolet radiation Other symptoms and signs involving cognitive functions and awareness Encounter for screening for depression Arthritis Surgical History (Updated 08/20/22 @ 17:02 by Vaughn Dugan MD) History of tubal ligation Social History household members: none Smoking Status: Former smoker Smoking Status: Former smoker alcohol intake frequency: holidays/special occasions only Substance Use Type: does not use Exam Initial Vital Signs Initial Vital Signs: Vital Signs Temperature 98 F 07/05/24 15:45 Pulse Rate 65 07/05/24 15:45 Respiratory Rate 19 07/05/24 15:45 Blood Pressure 174/87 H 07/05/24 15:45 Pulse Oximetry 96 07/05/24 15:45 Oxygen Delivery Method Room Air 07/05/24 15:45 Const General: cooperative and comfortable HENMT Head: normal to inspection and normocephalic Resp Effort & Inspection: normal respiratory effort Auscultation: clear to auscultation bilaterally Cardio Rate: regular rate GI Inspection: normal to inspection and non-distended Palpation: soft, No firm, No guarding and tender Skin General: no rashes or lesions noted Neuro General: patient alert, patient awake and moves all extremities Extrem General: capillary refill normal Course Orders Ordered: ED Orders 07/05/24 18:22 CT abdomen pelvis w con Stat Discontinued Medications Ondansetron HCl (Ondansetron 4 Mg/2 Ml Inj) 4 mg IV NOW PRN PRN Reason: Nausea And Vomiting Ondansetron HCl (Ondansetron 4 Mg Odt) 4 mg SL NOW PRN PRN Reason: Nausea And Vomiting Vital Signs Vital signs: Vital Signs - 8 hr 07/05/24 18:04 07/05/24 18:05 07/05/24 18:05 Pulse Rate 57 L 55 L Respiratory Rate 16 Blood Pressure 129/63 Pulse Oximetry 96 97 Oxygen Delivery Method Room Air 07/05/24 20:35 Pulse Rate 59 L Respiratory Rate 17 Blood Pressure 166/67 H Pulse Oximetry 98 Oxygen Delivery Method Room Air Medical Decision Making Lab Data Lab results reviewed: Yes I reviewed the patient's lab results. 07/05/24 16:32 07/05/24 16:32 Labs: Lab Results 07/05/24 Range/Units 16:32 WBC 8.8 (4.5-11.0) X10^3/uL RBC 4.23 (4.0-5.2) X10^6/uL Hgb 13.8 (12.0-16.0) g/dL Hct 40.4 (36-46) % MCV 95.4 (80-100) fL MCH 32.7 (26-34) PG MCHC 34.3 (30-36) % RDW 12.7 (11.6-14.8) % Plt Count 258 (150-400) X10^3/uL Neut % (Auto) 63.3 (50-75) % Lymph % (Auto) 26.4 (25-40) % [place] % (Auto) 9.3 (3-14) % Eos % (Auto) 0.6 L (2-4) % Baso % (Auto) 0.4 (0-2) % Neut # (Auto) 5600 (4578-5689) /uL Lymph # (Auto) 2300 (6676-8661) /uL [place] # (Auto) 800 (0-900) /uL Eos # (Auto) 100 (0-450) /uL Baso # (Auto) 0 (0-100) /uL Sodium 133 L (137-145) mmol/L Potassium 4.1 (3.4-5.1) mmol/L Chloride 99 (98-107) mmol/L Carbon Dioxide 28 (22-32) mmol/L BUN 15 (7-17) mg/dL Creatinine 0.70 (0.52-1.04) mg/dL Estimated GFR > 60 (>60) mL/min BUN/Creatinine Ratio 21.4 (6-22) Glucose 95 (80-110) mg/dL Calcium 9.2 (8.4-10.2) mg/dL Total Bilirubin 0.5 (0.2-1.3) mg/dL AST 22 (14-36) IU/L ALT 16 (<35) IU/L Alkaline Phosphatase 86 (38-126) U/L Total Protein 7.1 (6.3-8.2) g/dL Albumin 4.3 (3.5-5.0) g/dL Globulin 2.8 (1.7-4.1) g/dL Albumin/Globulin Ratio 1.5 (1.0-2.8) Lipase 99 (23-300) U/L Urine Dip Bedside Urine Glucose Negative Bedside Urine Bilirubin - Negative Bedside Urine Ketone - Negative Urine Specific [place] 1.005 Bedside Urine Occult Blood - Negative Bedside Urine pH 7.0 Bedside Urine Protein - Negative Bedside Urine Urobilinogen - Negative Bedside Urine Nitrite - Negative Bedside Urine Leukocytes - Negative Esterase Point of care testing: Urine Dip Bedside Urine Glucose Negative Bedside Urine Bilirubin - Negative Bedside Urine Ketone - Negative Urine Specific [place] 1.005 Bedside Urine Occult Blood - Negative Bedside Urine pH 7.0 Bedside Urine Protein - Negative Bedside Urine Urobilinogen - Negative Bedside Urine Nitrite - Negative Bedside Urine Leukocytes - Negative Esterase Imaging Data CT scan - abdomen/pelvis: Radiologist's Impression: PROCEDURE: CT ABDOMEN PELVIS W CON INDICATIONS: R sided abd pain TECHNIQUE: After the administration of intravenous contrast, axial sections acquired from the lung bases to the pubic symphysis. Coronal and sagittal reformats were performed. For radiation dose reduction, the following was used: automated exposure control, adjustment of mA and/or kV according to patient size. COMPARISON: None. FINDINGS: Image quality: Diagnostic. Lower Chest: No significant findings. ABDOMEN: Liver: No solid mass. Gallbladder: No radiopaque gallstones or wall thickening. Biliary ducts: No biliary dilation. Pancreas: No ductal dilation. Spleen: Size is within normal limits. Adrenal Glands: No adrenal nodules. Kidneys and Ureters: No hydronephrosis. No solid mass. No complex renal cystic lesion which requires follow up. Stomach and Bowel: Normal colonic caliber, without significant wall thickening. Diverticulosis. No diverticulitis. Normal appendix. Peritoneum: No abnormal intraperitoneal fluid. No free air. Ventral Wall: No significant ventral hernia. Abdominal Nodes: No retroperitoneal or mesenteric adenopathy by size criteria. Vessels: Aorta and inferior vena cava are normal in size. PELVIS: Pelvic Organs: Anteverted uterus. Bladder: No stone seen. Pelvic Nodes: No enlarged lymph nodes. Miscellaneous: No inguinal hernias are seen. Bones: No aggressive osseous abnormality. Right hip arthroplasty. Beam hardening artifact. Multilevel DDD. IMPRESSION: No acute abnormality identified. No free fluid. Normal appendix. Diverticulosis. No diverticulitis ECG Data Attestation: I personally reviewed and interpreted this ECG as follows: Interpretation: Sinus bradycardia Ventricular rate of 53 Normal axis Normal QRS Normal QTC No ST T wave changes MDM Narrative Medical decision making narrative: No leukocytosis. LFTs unremarkable. CT scan unremarkable as well. No signs of kidney stones. No signs of pyelonephritis. No signs of diverticulitis. Recommended that the patient talk with her primary care doctor about a follow-up to discuss the indications for a colonoscopy. We will hold on admission to the hospital for now. No indication for emergent surgical consultation. She was given return precautions. She expressed understanding and agreement. Discharge Plan Departure Patient Disposition: Home Clinical Impression: Abdominal pain Instructions: DI for Abdominal Pain-Adult Activity Restrictions/Additional Instructions: Continue to take all of your medications as directed. Recommend that you contact your primary doctor for follow-up to discuss the indications for a colonoscopy. Return to the emergency department for new or worsening symptoms. Prescriptions: No Action acyclovir 400 mg tablet See Rx Instructions .ROUTE .COMPLEX Qty: 180 3RF Dose Instruction: TAKE ONE TABLET BY MOUTH TWICE A DAY Rx Instructions: TAKE ONE TABLET BY MOUTH TWICE A DAY zolpidem 5 mg tablet See Rx Instructions PO BEDTIME MDD 5mg PRN (Reason: insomnia) Qty: 14 0RF Rx Instructions: 1/2 tab at hs for insomnia orally bedtime PRN; baclofen 10 mg tablet 10 mg PO QID Qty: 90 0RF mirabegron 25 mg tablet extended release 24 hr 25 mg PO DAILY Qty: 30 3RF methocarbamol 750 mg tablet 750 mg PO BID hyoscyamine sulfate 0.125 mg tablet,disintegrating 0.125 mg PO QID PRN (Reason: dyspepsia) Qty: 20 0RF estradiol [Estrace] 0.01 % (0.1 mg/gram) cream See Rx Instructions vaginal 3XW Qty: 42.5 2RF Rx Instructions: 0.5mg to introitus vaginally 3 times a week; Referrals: Carla Rodriguez PA-C [Primary Care Provider] - Stand Alone Forms: Patient Portal/API
[2024-07-05 20:35] VITALS: BP 166/67; PULSE 59; RESP 17; O2SAT 98
== END 2024-07-05 20:40 | disposition home or self-care (01) ==
PROVIDERS: Emergency Medicine; Emergency Provider Emergency Medicine; PCP Physician Assistant Medical
DX: R10.31 Right lower quadrant pain (principal); R00.1 Bradycardia, unspecified
CPT/HCPCS: 36415; 74177; 80053; 81003; 83690; 85025; 93005; 99284; Q9967

== ENCOUNTER → 2025-03-14 13:04 | Outpatient (CLI) | payer MEDICARE, SELFPAY ==
[2025-03-14 19:43] LABS: Add Manual Diff / Slide Review NO; Alanine Aminotransferase 18 IU/L (<35); Albumin 4.3 g/dL (3.5-5.0); Alkaline Phosphatase 115 U/L (38-126); Aspartate Aminotransferase 31 IU/L (14-36); BUN Creatinine Ratio 22.2 (6-22); Basophils Absolute Auto 100 /uL (0-100); Bilirubin Total 0.4 mg/dL (0.2-1.3); Blood Urea Nitrogen 20 mg/dL (7-17); Calcium 9.2 mg/dL (8.4-10.2); Carbon Dioxide 32 mmol/L (22-32); Chloride 101 mmol/L (98-107); Eosinophils Absolute Auto 200 /uL (0-450); Estimated Glomerular Filt Rate > 60 mL/min (>60); Globulin 2.2 g/dL (1.7-4.1); Glucose 68 mg/dL (70-99); HEMOLYSIS < 15 (0-50); Hematocrit 41.1 % (36-46); Hemoglobin 14.2 g/dL (12.0-16.0); Lymphocytes Absolute Auto 2300 /uL (1100-4500); Lymphocytes Percent Auto 32.9 % (25-40); Mean Corpuscular HGB Conc 34.5 % (30-36); Mean Corpuscular Hemoglobin 32.9 PG (26-34); Mean Corpuscular Volume 95.5 fL (80-100); Monocytes Absolute Auto 500 /uL (0-900); Monocytes Percent Auto 7.6 % (3-14); Neutrophils Absolute Auto 3900 /uL (1500-7000); Neutrophils Percent Auto 55.5 % (50-75); Platelet Count 267 X10^3/uL (150-400); Potassium 3.9 mmol/L (3.4-5.1); Red Blood Cell Count 4.31 X10^6/uL (4.0-5.2); Red Cell Distribution Width 12.5 % (11.6-14.8); Sodium 138 mmol/L (137-145); Total Protein 6.5 g/dL (6.3-8.2)
== END ==
PROVIDERS: Internal Medicine; PCP Physician Assistant Medical
DX: I35.0 Nonrheumatic aortic (valve) stenosis (principal)
CPT/HCPCS: 80053; 85025

== ENCOUNTER → 2025-05-16 08:58 | Outpatient (CLI) | payer MEDICARE, OTHER, SELFPAY | PROVIDERS: PCP Physician Assistant Medical; Visit Provider Physician Assistant Medical | DX: R10.9 Unspecified abdominal pain (principal) | CPT/HCPCS: 81002; 87086 ==

== ENCOUNTER → 2025-09-25 10:36 | Outpatient (CLI) | payer MEDICARE, OTHER, SELFPAY ==
[2025-09-25 19:18] LABS: Add Manual Diff / Slide Review NO; Hematocrit 42.5 % (36-46); Hemoglobin 14.7 g/dL (12.0-16.0); Lymphocytes Absolute Auto 2500 /uL (1100-4500); Mean Corpuscular HGB Conc 34.6 % (30-36); Mean Corpuscular Hemoglobin 32.4 PG (26-34); Mean Corpuscular Volume 93.8 fL (80-100); Platelet Count 327 X10^3/uL (150-400)
[2025-09-25 19:21] LABS: Alanine Aminotransferase 16 IU/L (<35); Albumin 4.6 g/dL (3.5-5.0); Albumin Globulin Ratio 1.8 (1.0-2.8); Alkaline Phosphatase 82 U/L (38-126); Blood Urea Nitrogen 14 mg/dL (7-17); Calcium 9.6 mg/dL (8.4-10.2); Carbon Dioxide 29 mmol/L (22-32); Chloride 99 mmol/L (98-107); Cholesterol 221 mg/dL (140-199); Estimated Glomerular Filt Rate > 60 mL/min (>60); Globulin 2.5 g/dL (1.7-4.1); Glucose 94 mg/dL (70-99); HDL Cholesterol 55 mg/dL (40-60); HEMOLYSIS < 15 (0-50); Hemoglobin A1C% w Est Avg Glu 5.2 % (4.0-6.0); Potassium 4.4 mmol/L (3.4-5.1); Sodium 135 mmol/L (137-145); Total Protein 7.1 g/dL (6.3-8.2); Triglycerides 87 mg/dL (35-150)
[2025-09-25 19:55] LABS: TSH w/ Reflex to FT4 1.28 uIU/mL (0.47-4.68)
== END ==
PROVIDERS: PCP Physician Assistant Medical; Visit Provider Physician Assistant Medical
DX: E78.00 Pure hypercholesterolemia, unspecified (principal); G47.9 Sleep disorder, unspecified; Z86.19 Personal history of other infectious and parasitic diseases; R73.09 Other abnormal glucose; R79.89 Other specified abnormal findings of blood chemistry; R01.1 Cardiac murmur, unspecified
CPT/HCPCS: 80053; 80061; 83036; 84443; 85025